=== PATIENT | male | born 1965 | race Caucasian/White ===

== ENCOUNTER → 2023-05-13 | Outpatient (CLI) | payer BC, SELFPAY ==
--- NOTE | 2023-05-13 | IMM_PTH ---
PATHOLOGY RESULTS PATIENT: JAMAICA GARCIA LOC: [facility] U#:[id number] AGE/SX: 57/M ROOM: RE05/13/[address]: Dr. Joshua Martin MD : 1965 BED: DIS: 05/13/2023 SPEC #: [id number] RECD: 05/17/23 10:53 STATUS: MARLENY REQ #: [id number] AMBROSE: 05/13/23 00:[address]: Joshua Martin DEPT: IMMUNOHISTOCHEMISTRY RECD BY: Lavelle Mullins ENTERED: 05/17/23 10:55 SP TYPE: IMMUNO Tissues: PROSTATE RIGHT PROSTATE LEFT PROSTATE LEFT Procedures: 34BE12 (add) P40 (add) P40 (initial) PHYSICIAN & INSTITUTION [place] [id number] SPECIMEN INFORMATION: Tissue Source: B - Right prostate mid, E-Left prostate, mid, F- Left prostate, base Clinical Info: Elevated PSA Specimen Number: [id number] B,E,F CPT code: 62108,02027b6 METHODOLOGY: Deparaffinized sections of prefer/formalin-fixed tissue or PAP/DQ stained slides are incubated with monoclonal/polyclonal antibodies/oligonucleotide probes. Localization is made via biotin free immunoperoxidase method. Appropriate controls are performed and reacted as expected. Results on target cell population are indicated in the following table: RESULTS: ANTIBODY / CLONE RESULT Block B P40 (BC28) positive 34BE12 (34BE12) positive Block E P40 (BC28) positive 34BE12 (34BE12) positive Block F P40 (BC28) positive 34BE12 (34BE12) positive These tests were developed and their performance characteristics determined by [facility]. They may not have been cleared or approved by the U.[place]. Food and Drug Administration. The FDA has determined that such clearance or approval is not necessary. The above immunohistochemical/dualISH markers are ordered and reviewed by the Pathologist. INTERPRETATION: B. Right prostate, mid, core biopsy: No evidence of malignancy. E. Left prostate, mid, core biopsy: No evidence of malignancy. F. Left prostate, base , core biopsy: No evidence of malignancy. AM:nelda 05/18/2023
--- NOTE | 2023-05-13 08:00 | PROSBIL_PTH ---
PATHOLOGY RESULTS PATIENT: JAMAICA GARCIA LOC: [facility] U#:[id number] AGE/SX: 57/M ROOM: RE05/13/[address]: Dr. Joshua Martin MD : 1965 BED: DIS: 05/13/2023 SPEC #: [id number] RECD: 05/14/23 08:04 STATUS: MARLENY CARITO #: [id number] AMBROSE: 05/13/23 08:[address]: Joshua Martin DEPT: SURGICAL PATHOLOGY RECD BY: Erin Carey ENTERED: 05/14/23 08:04 SP TYPE: PROST BX Tissues: PROSTATE RIGHT PROSTATE RIGHT PROSTATE RIGHT PROSTATE LEFT PROSTATE LEFT PROSTATE LEFT Procedures: PROSTATE BX HEADER OPERATION: Prostate biopsy PRE-OP DIAGNOSIS: Elevated PSA TISSUE SUBMITTED: A - Right apex, B - Right mid, C - Right base, D - Left apex, E - Left mid, F - Left base MICROSCOPIC DIAGNOSIS A. Right prostate, apex, core biopsy: Mild chronic inflammation. B. Right prostate, mid, core biopsy: Focal chronic inflammation. See comment. C. Right prostate, base, core biopsy: Mild chronic inflammation. Focal acute inflammation. Focal glandular atrophy. D. Left prostate, apex, core biopsy: No pathologic change. E. Left prostate, mid, core biopsy: Glandular atrophy and chronic inflammation. See comment. F. Left prostate, base, core biopsy: Mild chronic inflammation and glandular atrophy. See comment. AM:nelda 05/17/2023 COMMENT B, E & F - Immunohistochemistry ([id number]) supports the above diagnosis. MICROSCOPIC DESCRIPTION Slides are reviewed. GROSS DESCRIPTION A - Received is one container designated prostate, right apex. The specimen consists of two elongated fragments of light saini-white soft tissue measuring 0.8 and 1.2 cm in length and 0.1 cm in diameter. The specimen is totally submitted in one cassette. B - Received is one container designated prostate, right mid. The specimen consists of two elongated fragments of light saini-white soft tissue measuring 1.5 and 1.2 cm in length and 0.1 cm in diameter. The specimen is totally submitted in one cassette. C - Received is one container designated prostate, right base. The specimen consists of two elongated fragments of light saini-white soft tissue each measuring 1.5 cm in length and 0.1 cm in diameter. The specimen is totally submitted in one cassette. D - Received is one container designated prostate, left apex. The specimen consists of two elongated fragments of light saini-white soft tissue measuring 0.9 and 1.0 cm in length and 0.1 cm in diameter. The specimen is totally submitted in one cassette. E - Received is one container designated prostate, left mid. The specimen consists of two elongated fragments of light saini-white soft tissue measuring 0.6 and 1.5 cm in length and 0.1 cm in diameter. The specimen is totally submitted in one cassette. F - Received is one container designated prostate, left base. The specimen consists of two elongated fragments of light saini-white soft tissue measuring 1.2 and 1.5 cm in length and 0.1 cm in diameter. The specimen is totally submitted in one cassette. / JIMMY:nelda 05/14/2023 TC:3 CPT: 52224 x6
--- OUTSIDE RECORDS SUMMARY | 2023-05-13 20:25 | XMS RPT_ITS | CCD ---
Author Name Unknown Address [address] [place] [address] Organization [facility] Care Team Providers Care Product Planner Name Role Phone Mouna Dawson Primary Care Provider ERICA LI Attending Unavailable SAMIR MOUNA Byrne Primary Care Unavailable Samir QUEZADA Mouna F Primary Care Provider [phone] Samir QUEZADA Mouna Byrne Primary Care Provider MOUNA DAWSON Attending Unavailable PETRILLA, MOUNA Referring Unavailable PETRILLA, RIO DELL Primary Care Unavailable LILIANA TRUJILLO Referring Unavailable EMMY CANO Primary Care Unavailable PETRILLA, MOUNA Attending Unavailable PETRILLA, MOUNA Primary Care Unavailable PETRILLA, MOUNA Primary Care Unavailable SURI BENJAMIN Attending Unavailable CASSIDY, SURI Referring Unavailable KENYA, MOUNA Primary Care Unavailable PETRISHOLAA, MOUNA Attending Unavailable PETRILLA, RIO DELL Primary Care Unavailable FRACAELIASO EMMY Primary Care Unavailable LILIANA TRUJILLO Attending Unavailable PETRILLA, MOUNA Attending Unavailable PETRILLA, MOUNA Referring Unavailable PETRILLA, RIO DELL Primary Care Unavailable Allergies Allergy Classification Reported Allergen(s) Allergy Type Date of Onset Reaction(s) Facility (13 sources) Amoxicillin; Translations: [AMOXICILLIN] Drug Allergy 04-04-2015 Rash [facility] Medications Current Medications Medication Drug Class(es) Dates Sig (Normalized) Sig (Original) benzonatate 200 mg oral capsule (1 source) Non-narcotic Antitussive Start: 10-07-2022 End: 10-11-2022 take 1 capsule by mouth three times daily as needed for cough benzonatate (Tessalon) 200 MG capsule Indications: URI with cough and congestion , COPD exacerbation (HCC) Take 1 capsule (200 mg) by mouth 3 times daily as needed for cough for up to 4 days. Do not crush or chew. 12 capsule 0 10/07/2022 10/11/2022 Active 12 hr buPROPion hydrochloride 200 mg extended release oral tablet (12 sources) Aminoketone Start: 08-24-2022 End: 08-25-2023 take 1 tablet by mouth twice daily buPROPion SR (Wellbutrin SR) 200 MG 12 hr tablet Take 1 tablet (200 mg) by mouth 2 times daily. Do not crush, chew, or split. 180 tablet 1 02/26/2023 08/25/2023 Active Completed/Discontinued Medications Medication Drug Class(es) Dates Sig (Normalized) Sig (Original) acetaminophen 325 mg oral capsule (2 sources) take 1 capsule by mouth every six hours as needed acetaminophen 325 mg cap Take 325 mg by mouth every 6 hours as needed. 0 Active Problems Active Problems Problem Classification Problem Date Documented Date Episodic/Chronic Administrative/socia l admission (2 sources) Tobacco abuse counseling; Translations: [Tobacco abuse counseling] Onset: 03-23-2023 Episodic Chronic obstructive pulmonary disease and bronchiectasis (15 sources) Chronic obstructive lung disease; Translations: [Chronic obstructive pulmonary disease, unspecified] Onset: 04-27-2022 04-27-2022 Chronic Disorders of lipid metabolism (3 sources) Hypercholesterolemia; Translations: [Pure hypercholesterolemia, unspecified] Onset: 08-24-2022 08-24-2022 Chronic Esophageal disorders (3 sources) Gastroesophageal reflux disease without esophagitis; Translations: [Gastro-esophageal reflux disease without esophagitis] Chronic Genitourinary symptoms and ill-defined conditions (7 sources) Increased frequency of urination; Translations: [Frequency of micturition] Onset: 08-24-2022 08-24-2022 Episodic Other aftercare (4 sources) Patient encounter status; Translations: [Encounter for therapeutic drug level monitoring] Episodic Other nervous system disorders (2 sources) Other chronic pain; Translations: [Other chronic pain] Onset: 04-26-2023 Chronic Other non-traumatic joint disorders (3 sources) Chronic pain of left upper limb; Translations: [Pain in left shoulder] 03-23-2023 Episodic Other non-traumatic joint disorders (2 sources) Pain in left shoulder; Translations: [Pain in left shoulder] Onset: 04-26-2023 Episodic Other skin disorders (1 source) Excessive sweating; Translations: [Generalized hyperhidrosis] 08-24-2022 Episodic Residual codes; unclassified (1 source) Tobacco use and exposure - finding; Translations: [Tobacco use] Episodic Substance-related disorders (20 sources) Smoker; Translations: [Nicotine dependence, unspecified, uncomplicated] Onset: 04-15-2015 12-22-2021 Chronic Unclassified (1 source) Acute cough; Translations: [Acute cough] Onset: 06-30-2022 Past or Other Problems Problem Classification Problem Date Documented Da te Episodic/Chronic Other lower respiratory disease (10 sources) Nodule of lung; Translations: [Solitary pulmonary nodule] Onset: 04-27-2022 04-27-2022 Episodic Other screening for suspected conditions (not mental disorders or infectious disease) (18 sources) Raised prostate specific antigen; Translations: [Elevated prostate specific antigen [PSA]] Onset: 02-05-2022 02-15-2022 Episodic Other skin disorders (2 sources) Generalized hyperhidrosis; Translations: [Generalized hyperhidrosis] Onset: 08-24-2022 Episodic Other upper respiratory infections (3 sources) Upper respiratory infection; Translations: [Acute upper respiratory infection, unspecified] Onset: 10-07-2022 10-07-2022 Episodic Residual codes; unclassified (10 sources) Family history of malignant neoplasm of pancreas; Translations: [Family history of malignant neoplasm of digestive organs] Onset: 04-15-2015 12-22-2021 Episodic Residual codes; unclassified (10 sources) Family history of diabetes mellitus; Translations: [Family history of diabetes mellitus] Onset: 01-26-2022 01-26-2022 Episodic Unclassified (1 source) Acute cough; Translations: [Acute cough] Onset: 06-30-2022 Results Test Name Value Interpretation Reference Range Facil ity Vital Signs Date Time Vital Sign Value Performing Clinician Faci lity 03-23-2023 16:06-0500 Body height 182.9 cm Mouna Dawson [employer] Work Phone: [employer] 03-23-2023 16:06-0500 Body mass index (BMI) [Ratio] 28.89 kg/m2 Mouna Dawson [employer] Work Phone: [employer] 03-23-2023 16:06-0500 Body temperature 97.11 [degF] Mouna Dawson [employer] Work Phone: [email or web address] 03-23-2023 16:06-0500 Body weight 96.62 kg Mouna Dawson DO Work Phone: [facility] [email or web address] 03-23-2023 16:06-0500 Diastolic blood pressure 82 mm[Hg] Mouna Dawson DO Work Phone: [facility] [email or web address] 03-23-2023 16:06-0500 Heart rate 57 /min Mouna Dawson DO Work Phone: [facility] [email or web address] 03-23-2023 16:06-0500 SaO2% (BldA) [Mass fraction] 94 % Mouna Dawson DO Work Phone: [facility] [email or web address] 03-23-2023 16:06-0500 Systolic blood pressure 122 mm[Hg] Mouna Dawson DO Work Phone: [facility] [email or web address] 10-07-2022 17:12-0400 SaO2% (BldA) [Mass fraction] 91 % Suri Cassidy [employer] Work Phone: [facility] [email or web address] 10-07-2022 17:00-0400 Body height 182.9 cm Suri Cassidy [employer] Work Phone: [email or web address] 10-07-2022 17:00-0400 Body mass index (BMI) [Ratio] 27.18 kg/m2 Suri Cassidy [employer] [facility] 10-07-2022 17:00-0400 Body temperature 98.1 [degF] Suri Cassidy [employer] Work Phone: [email or web address] 10-07-2022 17:00-0400 Body weight 90.9 kg Suri Cassidy [employer] Work Phone: [email or web address] 10-07-2022 17:00-0400 Diastolic blood pressure 85 mm[Hg] Suri Cassidy [employer] Work Phone: [email or web address] 10-07-2022 17:00-0400 Heart rate 98 /min Suri Cassidy [employer] Work Phone: [facility] [email or web address] 10-07-2022 17:00-0400 Systolic blood pressure 121 mm[Hg] Suri Benjamin [employer] Work Phone: [facility] [employer] 08-24-2022 08:58-0400 Body height 182.9 cm Mouna Dawson DO Work Phone: [facility] [employer] 08-24-2022 08:58-0400 Body mass index (BMI) [Ratio] 27.26 kg/m2 Mouna Dawson DO Work Phone: [facility] [email or web address] 08-24-2022 08:58-0400 Body temperature 97.7 [degF] Mouna Dawson DO Work Phone: [facility] [employer] 08-24-2022 08:58-0400 Body weight 91.17 kg Mouna Dawson DO Work Phone: [facility] [employer] 08-24-2022 08:58-0400 Diastolic blood pressure 72 mm[Hg] Mouna Dawson DO Work Phone: [facility] [email or web address] 08-24-2022 08:58-0400 Heart rate 69 /min Mouna Dawson DO Work Phone: [facility] [email or web address] 08-24-2022 08:58-0400 SaO2% (BldA) [Mass fraction] 94 % Mouna Dawson DO Work Phone: [facility] [email or web address] 08-24-2022 08:58-0400 Systolic blood pressure 108 mm[Hg] Mouna Dawson DO Work Phone: [facility] [email or web address] 03-10-2022 15:36-0500 Body height 182.9 cm Erica Guillermo PA-C Work Phone: [facility] 03-10-2022 15:36-0500 Body weight 90.72 kg Erica Guillermo PA-C Work Phone: [facility] 03-10-2022 15:36-0500 Diastolic blood pressure 72 mm[Hg] Erica Guillermo PA-C Work Phone: [facility] 03-10-2022 15:36-0500 Heart rate 75 /min Erica Guillermo TELLEZ Work Phone: [facility] 03-10-2022 15:36-0500 Systolic blood pressure 112 mm[Hg] Erica Guillermo TELLEZ Work Phone: [facility] Encounters Encounter Date Encounter Type Care Provider Facility Start: 05-11-2023 End: 05-12-2023 ambulatory MOUNA DAWSON [facility] Start: 05-11-2023 End: 05-11-2023 Subsequent hospital visit by physician Mouna Dawson DO Work Phone: [facility] Procedures Date Procedure Procedure Detail Performing Clinician Start: 10-16-2022 Lipid 1996 panel - S cheko or Plasma Mouna Dawson DO Work Phone: Start: 10-07-2022 Radiologic exam ches t 2 views Suri Benjamin [employer] Work Phone: Start: 02-09-2022 Lipid 1996 panel - S cheko or Plasma Mouna Dawson Work Phone: Plan of Treatment Date Care Activity Detail Author Start: 10-17-2027 Lipid panel Lipid Panel [facility] Start: 02-09-2027 Lipid panel Lipid Panel [facility] Start: 02-09-2027 LIPID SCREEN LIPID SCREEN [facility] Start: 09-02-2025 Screening for malignant neoplasm of colon [facility] Start: 2023 RSV Immunization aged 60 or older (1 - 1-dose 60+ series) RSV Immunization aged 60 or older (1 - 1-dose 60+ series) [facility] Start: 05-11-2023 End: 05-11-2023 Patient encounter procedure 05/11/2023 3:15 PM EST Appointment [facility] [address] [place] [address] Mouna Dawson DO [address] [place] [address] [facility] [address] Start: 03-25-2023 End: 03-25-2024 CT Chest for screening WO contrast CT lung screening low dose Imaging Routine Moderate smoker (20 or less per day) Smoker Expected: 03/25/2023, Expires: 03/25/2024 [facility] Work Phone: Payers Date Payer Category Payer Unknown [id number] 2020 Unknown [id number] Social History Date Type Detail Facility Start: 04-04-1982 End: 01-08-2022 Tobacco smoking status NHIS Smokes tobacco daily [facility] Start: 09-18-1981 History of tobacco use Cigarette Smo ker [facility] Start: 11-29-2018 End: 10-07-2022 Cigarettes smoked current (pack per day) - Reported 1 [facility] Start: 11-29-2018 Tobacco use and exposure Lewis cherry smokeless tobacco user [facility] History of tobacco use Snuff User [facility] Start: 02-05-2021 End: 03-23-2023 Alcohol intake Current drinker of alcohol (finding) [facility] Start: 09-02-2017 Alcohol Comment 2 days or less/week [facility] Start: 1965 Sex Assigned At Not on file [facility] Start: 01-08-2022 Tobacco use and exposure Smoke less tobacco non-user [facility] Start: 06-30-2022 End: 10-07-2022 Tobacco use panel [facility] Start: 08-14-2022 End: 10-07-2022 Exposure to SARS-CoV-2 (event) Not sure [facility] Clinical Notes 02-04-2022 to 03-25-2023 Telephone Encounter - Brenda Lackey - 03/25/2023 10:42 AM ESTTelephone Encounter - Brenda Lackey - 03/25/2023 10:42 AM Kai Dawson DO - 03/23/2023 4:00 PM ESTPatient InstructionsAttachments Note Date & Type Note Facility 03-25-2023 Note Referral pended for doctor's signature [facility] 03-25-2023 Telephone encounter Note Referral pended for doctor's signature [facility] 03-25-2023 Miscellaneous Notes Referral pended for doctor's signature documented in this encounter [facility] 03-23-2023 History of Present illness Narrative Images from the original note were not included. [facility] [address] [facility] [id number] Visit type: Established Patient Reason for Visit: Follow-up (6 month med check) Assessment / Plan: [place] was seen today for follow-up. Diagnoses and all orders for this visit: Chronic obstructive pulmonary disease with acute exacerbation (HCC) (Primary) Comments: Stable, continue Trelegy and albuterol as needed. Smoking cessation urged Orders: - CBC auto differential; Future - Comprehensive metabolic panel; Future - CBC auto differential - Comprehensive metabolic panel Smoker Comments: LDCT chest Elevated PSA, less than 10 ng/ml Comments: Persistent, urology referral Orders: - PSA, total and free; Future - PSA, total and free Nocturia Chronic left shoulder pain Comments: Recurrent, x-ray, diclofenac gel 3 times daily as needed Orders: - XR shoulder 2+ views left; Future Encounter for smoking cessation counseling Comments: Stable, continue Wellbutrin Other orders - Ajegbusihcg-Qufhwizbw-Xbgsnl (Trelegy Ellipta) 200-62.5-25 MCG/ACT aerosol powder ; Inhale 1 Inhalation. daily. Subjective: Patient ID: [place] Rivero is a 57 y.o. male. HPI long-term smoker history of COPD per CT of the chest that has responded well to Trelegy presents for checkup. Had a URI in October and used a few days of albuterol. Denies exertional chest pain or wheezing. Trelegy has been effective. He is due for LDCT of the chest. Does have a history of small 2 mm nodule of the right base per CT last March. Has not heard from urologist for appointment for workup for elevated PSA. Needs referral. Few months of left shoulder pain. Review of Systems overall eating and voiding well. Is down to half pack cigarettes a day. No recent purulent phlegm or fever. No pleurisy or chest pain. Defers vaccinations. Denies exertional chest pain PND orthopnea claudication or edema. No heartburn or dysphagia. No melena or blood. Bowels are regular. Cologuard exam negative September in 3 years. Having ongoing nocturia postvoid dribbling and hesitancy. No hematuria. Of note PSA around 7 6 months ago. Allergies Allergen Reactions Amoxicillin Rash Current Outpatient Medications on File Prior to Visit Medication Sig Dispense Refill buPROPion SR (Wellbutrin SR) 200 MG 12 hr tablet Take 1 tablet (200 mg) by mouth 2 times daily. Do not crush, chew, or split. 180 tablet 1 omeprazole (PriLOSEC) [address] capsule [DISCONTINUED] Ecrpvqmznoo-Sdueikvrm-Daltlo (Trelegy Ellipta) 200-62.5-25 MCG/ACT aerosol powder Inhale 1 Inhalation daily. 3 each 3 [DISCONTINUED] azithromycin (Zithromax) 250 MG tablet Take 2 tablets (500 mg) on Day 1, followed by 1 tablet (250 mg) once daily on Days 2 through 5. 6 tablet 0 No current facility-administered medications on file prior to visit. Patient Active Problem List Diagnosis Smoker Family history of pancreatic cancer Family history of diabetes mellitus Elevated PSA, less than 10 ng/ml Pulmonary nodule, right Chronic obstructive pulmonary disease (HCC) Social History Tobacco Use Smoking status: Every Day Types: Cigarettes Start date: 04/04/1982 Smokeless tobacco: Never Substance Use Topics Alcohol use: Yes Alcohol/week: 2.0 standard drinks of alcohol Past Surgical History: Procedure Laterality Date PITUITARY SURGERY 1988 craniotomy pituitary adenoma UPPER GASTROINTESTINAL ENDOSCOPY 11/2010 Dr. Francis Family History Problem Relation Name Age of Onset COPD Mother age 91, in 2019, COVID illness Pancreatic cancer Father age 72, smoker, no ETOH Heart attack Sister age 54, Diabetes Sister No Known Problems Sister No Known Problems Sister No Known Problems Sister No Known Problems Maternal Grandmother No Known Problems Maternal Grandfather No Known Problems Paternal Grandmother Other (othr) Paternal Grandfather MVA in 50s Objective: BP 122/82 Pulse 57 Temp 36.2 C (97.1 F) (Temporal) Ht 6' (1.829 m) Wt 213 lb (96.6 kg) SpO2 94% BMI 28.89 kg/m Physical Exam pleasant cooperative. Certainly not ill in appearance. Normal oropharynx. Normal eardrums and clear PND. No neck masses adenopathy or thyroid lesions. No carotid bruits. Heart is regular without gallops or ectopy or murmurs. Lungs diminished in the bases but without rales wheezes or egophony. Abdomen soft nontender without pain hepatosplenomegaly masses or bruits. Extremities are pink without edema. Pulses are well Positive impingement of the left shoulder. However remaining rotator cuff exam is intact. Negative drop arm and empty can sign. Biceps intact. Can push off his buttock and touch his mid thoracic spine. Negative Spurling's. No motor loss of the upper extremities. Reflexes are normal documented in this encounter [facility] 02-26-2023 Telephone encounter Note Last OV:08/24/22 Scheduled:03/23/23 [facility] 02-26-2023 Miscellaneous Notes Last OV:08/24/22 Scheduled:03/23/23 documented in this encounter [facility] 10-20-2022 Note Referral pended for dx and doctor's signature [facility] 10-20-2022 Telephone encounter Note Referral pended for dx and doctor's signature [facility] 10-20-2022 Miscellaneous Notes Referral pended for dx and doctor's signature Mouna Dawson DO 10/20/2022 7:20 AM EDT Glucose and renal function stable. Patient with persistently elevated PSA over 4. So needs referral for urology to discuss further work-up to rule out early prostate cancer. Post referral to Dr. Ruiz if he agrees documented in this encounter [facility] 10-20-2022 Telephone encounter Note Mouna Byrne Samir, DO 10/20/2022 7:20 AM EDT Glucose and renal function stable. Patient with persistently elevated PSA over 4. So needs referral for urology to discuss further work-up to rule out early prostate cancer. Post referral to Dr. uRiz if he agrees [facility] 10-07-2022 History of Present illness Narrative Images from the original note were not included. [facility] [address] [place] [id number] Dept: [phone] Dept Loc: [phone] Subjective [place] Rivero is a 56 y.o. year old male who presents to the office with the following complaint(s): Chief Complaint Patient presents with Cough Had a cold then progressed into bronchitis, started wednesday HPI Patient presents urgent care today with complaints of cough, congestion, shortness of breath. Patient states he has a history of COPD, stating that typically when he gets an upper respiratory infection it turns into bronchitis. Patient states he had similar symptoms in June. Patient states he feels like he cannot take in a deep breath/get a full breath. Patient states he has not utilize any wqti-abz-gyyvwas medications at this time. Patient states typically he gets a Z-Marco A and steroids and feels better. Review of Systems Constitutional: Negative for activity change, chills and fever. HENT: Positive for congestion. Negative for sore throat. Respiratory: Positive for cough, chest tightness and shortness of breath. Cardiovascular: Negative for chest pain and palpitations. Allergic/Immunologic: Negative for environmental allergies and food allergies. Neurological: Negative for dizziness and headaches. Allergies Allergen Reactions Amoxicillin Rash Past Medical History: Diagnosis Date Chronic obstructive pulmonary disease (HCC) 02/[address], PFTs def Colon cancer screening 09/2022 neg Cologuard- due 09/30 Colonoscopy refused 2016 Elevated PSA, less than 10 ng/ml 02/2022 Family history of diabetes mellitus sister Family history of pancreatic cancer father at age 72 GERD (gastroesophageal reflux disease) 2010 has deferred EGD History of pituitary adenoma 1987 s/p craniotomy Hypercholesterolemia Hypotestosteronism Pulmonary nodule, right 02/2022 2 mm Rt base- rech CT due 02/27 Smoker Past Surgical History: Procedure Laterality Date PITUITARY SURGERY 1988 craniotomy pituitary adenoma UPPER GASTROINTESTINAL ENDOSCOPY 11/2010 Dr. Francis Family History Problem Relation Name Age of Onset COPD Mother age 91, in 2019, COVID illness Pancreatic cancer Father age 72, some nicotine, no ETOH Heart attack Sister age 54, Diabetes Sister No Known Problems Sister No Known Problems Sister No Known Problems Sister No Known Problems Maternal Grandmother No Known Problems Maternal Grandfather No Known Problems Paternal Grandmother Other (othr) Paternal Grandfather MVA in 50s Social History Socioeconomic History Marital status: Tobacco Use Smoking status: Every Day Types: Cigarettes Start date: 04/04/1982 Smokeless tobacco: Never Substance and Sexual Activity Alcohol use: Yes Alcohol/week: 2.0 standard drinks of alcohol Social History Narrative to Corinna since 2000. Smoker, rare ETOH, 3 step kids, has 7 GC. 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 Do not crush, chew, or split. 180 tablet 1 Yyemlqfszyq-Lifkbtzrp-Uyyxfy (Trelegy Ellipta) 200-62.5-25 MCG/ACT aerosol powder Inhale 1 Inhalation daily. 3 each 3 omeprazole (PriLOSEC) [address] capsule tamsulosin (Flomax) 0.4 MG 24 hr capsule Take 1 capsule (0.4 mg) by mouth daily. 90 capsule 0 No current facility-administered medications on file prior to visit. Objective BP 121/85 Pulse 98 Temp 36.7 C (98.1 F) (Temporal) Ht 6' (1.829 m) Wt 200 lb 6.4 oz (90.9 kg) SpO2 91% BMI 27.18 kg/m Physical Exam Vitals and nursing note reviewed. Constitutional: General: He is not in acute distress. Appearance: Normal appearance. He is normal weight. He is not ill-appearing. HENT: Head: Normocephalic. Nose: Nose normal. Mouth/Throat: Mouth: Mucous membranes are moist. Eyes: Pupils: Pupils are equal, round, and reactive to light. Pulmonary: Effort: Pulmonary effort is normal. Prolonged expiration present. No accessory muscle usage or respiratory distress. Breath sounds: Decreased breath sounds and wheezing present. Skin: General: Skin is warm and dry. Neurological: General: No focal deficit present. Mental Status: He is alert and oriented to person, place, and time. Mental status is at baseline. Psychiatric: Mood and Affect: Mood normal. Behavior: Behavior normal. Thought Content: Thought content normal. Judgment: Judgment normal. Chest XRAY-1. Stable examination. No acute findings. Assessment: 1. COPD exacerbation (HCC) 2. URI with cough and congestion [place] was seen today for cough. Diagnoses and all orders for this visit: COPD exacerbation (HCC) (Primary) - azithromycin (Zithromax) 250 MG tablet; Take 2 tablets (500 mg) on Day 1, followed by 1 tablet (250 mg) once daily on Days 2 through 5. - predniSONE (Deltasone) 20 MG tablet; Take 2 tablets (40 mg) by mouth daily for 5 days. - benzonatate (Tessalon) 200 MG capsule; Take 1 capsule (200 mg) by mouth 3 times daily as needed for cough for up to 4 days. Do not crush or chew. URI with cough and congestion - XR chest 2 views - azithromycin (Zithromax) 250 MG tablet; Take 2 tablets (500 mg) on Day 1, followed by 1 tablet (250 mg) once daily on Days 2 through 5. - predniSONE (Deltasone) 20 MG tablet; Take 2 tablets (40 mg) by mouth daily for 5 days. - benzonatate (Tessalon) 200 MG capsule; Take 1 capsule (200 mg) by mouth 3 times daily as needed for cough for up to 4 days. Do not crush or chew. Patient advised of chest x-ray results. Plan of care for patient is to treat for COPD exacerbation. Patient advised to be given prescription for Z-Marco A as requested along with prednisone. Patient advised take entirety medication take medication with food and fluid. Patient did request something to help with cough only at night. I explained to patient he be given Tessalon. Patient was advised this medication can be taken during the day, however night is recommended. Red flag discussed with patient. Patient to check pulse ox at home. If he drops under 88 and stays he is to go to the ER for further evaluation. Patient agreeable and understanding of plan of care. Medication indications, directions, and side effects were discussed. Patient given educational materials - see patient instructions. Discussed use, benefit, and side effects of prescribed medications. All patient questions answered. Pt voiced understanding and aware of treatment plan. Follow up as directed. (Please note that portions of this note may have been completed with a voice recognition program. Efforts were made to edit the dictations but occasionally words aremis-transcribed.) JANICE Subramanian 10/07/22 documented in this encounter [facility] 10-07-2022 Instructions TONI Subramanian NP - 10/07/2022 4:40 PM EDT Tessalon at night. Monitor pulse ox. ER for new/worsening symptoms. PCP follow-up otherwise The following attachments cannot be sent through Care Everywhere.Chronic Obstructive Pulmonary Disease (COPD) Discharge Instructions (Guamanian)documented in this encounter [facility] 08-24-2022 History of Present illness Narrative Images from the original note were not included. [facility] [address] [facility] [id number] Visit type: Established Patient Reason for Visit: Follow-up (4 month) Assessment / Plan: [place] was seen today for follow-up. Diagnoses and all orders for this visit: Chronic obstructive pulmonary disease with acute exacerbation (HCC) (Primary) Comments: Stable, continue Trelegy smoking cessation urged Smoker Comments: Uncontrolled, increase Wellbutrin to 100 mg twice daily Colon cancer screening - Cologuard colon cancer screening Elevated PSA, less than 10 ng/ml Comments: Noted, recheck lab probable urology consultation with elevated Orders: - PSA, total and free; Future - PSA, total and free Urinary frequency Comments: Noted, begin Flomax Orders: - POCT urinalysis dipstick manually resulted Hypercholesterolemia Comments: Uncontrolled, smoking cessation urged and probable statin therapy Orders: - Lipid panel; Future - Lipid panel Diaphoresis - Basic metabolic panel; Future - Basic metabolic panel Gastroesophageal reflux disease without esophagitis Comments: Stable, continue Prilosec. He defers GI eval for repeat EGD. Other orders - buPROPion SR (Wellbutrin SR) 200 MG 12 hr tablet; Take 1 tablet (200 mg) by mouth 2 times daily. Do not crush, chew, or split. - tamsulosin (Flomax) 0.4 MG 24 hr capsule; Take 1 capsule (0.4 mg) by mouth daily. Of note still defers GI consultation for upper endoscopy. Avoidance measures discussed including smoking cessation. Subjective: Patient ID: [place] Rivero is a 56 y.o. male. HPI long-term smoker presents for evaluation for Trelegy refills. He is smoking less on Wellbutrin. Overall feeling pretty fair. Of note does need follow-up on hyperlipidemia, elevated PSA, is due for colon cancer screening. Review of Systems feeling fair. Weight and appetite is good. No change in vision sore throat. Much less cough on Trelegy. No exertional dyspnea or wheezing. No chest pain jaw pain or arm pain. No heartburn or dysphagia. He is deferring repeat EGD at this time takes Prilosec daily. His bowels are regular. No melena or blood. No abdominal pain. Nocturia x1. Some postvoid dribbling and hesitancy. Would like to try Flomax. He thinks Wellbutrin is worsening his urinary symptoms. Of note elevated PSA needs follow-up. No hematuria or testicle or perineal pain Has some diaphoresis for many years. No night sweats fevers or chills. No loss of appetite or weight. Allergies Allergen Reactions Amoxicillin Rash Current Outpatient Medications on File Prior to Visit Medication Sig Dispense Refill Zygpfhdgfyd-Kthjoiyzg-Izkefm (Trelegy Ellipta) 200-62.5-25 MCG/ACT aerosol powder Inhale 1 Inhalation daily. 3 each 3 omeprazole (PriLOSEC) [address] capsule [DISCONTINUED] buPROPion SR (Wellbutrin SR) 150 MG 12 hr tablet Take 1 tablet (150 mg) by mouth 2 times daily. Do not crush, chew, or split. 180 tablet 3 [DISCONTINUED] albuterol 108 (90 Base) MCG/ACT inhaler Inhale 2 puffs every 6 hours as needed for wheezing. (Patient not taking: Reported on 08/24/2022) 18 g 0 [DISCONTINUED] azithromycin (Zithromax Z-Marco A) 250 MG tablet Take as directed (Patient not taking: Reported on 08/24/2022) 6 tablet 0 No current facility-administered medications on file prior to visit. Patient Active Problem List Diagnosis Smoker Family history of pancreatic cancer Family history of diabetes mellitus Elevated PSA, less than 10 ng/ml Pulmonary nodule, right Chronic obstructive pulmonary disease (HCC) Social History Tobacco Use Smoking status: Every Day Types: Cigarettes Start date: 04/04/1982 Smokeless tobacco: Never Substance Use Topics Alcohol use: Yes Alcohol/week: 2.0 standard drinks of alcohol Past Surgical History: Procedure Laterality Date PITUITARY SURGERY 1988 craniotomy pituitary adenoma UPPER GASTROINTESTINAL ENDOSCOPY 11/2010 Dr. Francis Family History Problem Relation Name Age of Onset COPD Mother age 91, in 2019, COVID illness Pancreatic cancer Father age 72, some nicotine, no ETOH Heart attack Sister age 54, Diabetes Sister No Known Problems Sister No Known Problems Sister No Known Problems Sister No Known Problems Maternal Grandmother No Known Problems Maternal Grandfather No Known Problems Paternal Grandmother Other (othr) Paternal Grandfather MVA in 50s Objective: BP 108/72 (BP Location: Left arm, Patient Position: Sitting, BP Cuff Size: Large adult) Pulse 69 Temp 36.5 C (97.7 F) (Temporal) Ht 6' (1.829 m) Wt 201 lb (91.2 kg) SpO2 94% BMI 27.26 kg/m Physical Exam he appears well. Normal oropharynx with no tongue lesions. Normal eardrums. No neck masses JVD adenopathy or carotid bruits. No thyroid lesions. Heart is regular gallops murmurs or ectopy. Lungs are diminished but clear of rales wheezes or egophony. Abdomen soft nontender without pain hepatosplenomegaly masses bruits or ascites. Femoral pulses good. Extremities are pink without edema. Posterior tibial pulses are adequate documented in this encounter [facility] 03-10-2022 Note HNO ID: [id number] Author: Erica Li PA-C Service: ? 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 HPI [place] Rivero is a 56 year old male here today for Recheck (Yearly no concerns.) Patient tells me that he is doing well today. On Omeprazole 40 mg daily, denies breakthrough symptoms. Denies dysphagia, nausea, vomiting, abdominal pain. Eating well. Bowel movements are regular. Denies rectal bleeding. Still smoking 1 ppd. Last OV with Dr. Francis 02/05/2021: ASSESSMENT: Gastroesophageal reflux disease without esophagitis (primary encounter diagnosis) At average risk for colon cancer PLAN: No orders found for this visit on 02/05/21. No follow-ups on file. Continue omeprazole Patient doesn't want To colonoscopy yet Current Outpatient Medications Medication Sig omeprazole (PRILOSEC) 40 mg capsule Take 1 capsule by mouth once daily. acetaminophen 325 mg cap Take 325 mg by mouth every 6 hours as needed. aspirin 325 mg tablet Take 325 mg by mouth once daily. No current facility-administered medications for this visit. ALLERGIES Allergen Reactions Amoxicillin Rash Social History Tobacco Use Smoking status: Every Day Packs/day: 1.00 Types: Cigarettes Start date: 09/18/1981 Smokeless tobacco: Former Types: Snuff Vaping Use Vaping Use: Never used Substance Use Topics Alcohol use: Yes Comment: 2 days or less/week Drug use: No Comment: Used in the past. PAST MEDICAL HISTORY Diagnosis Date Colonoscopy refused 07/22/2016 GERD (gastroesophageal reflux disease) Hiatal hernia History of pituitary adenoma Hypotestosteronism PAST SURGICAL HISTORY Procedure Laterality Date EGD 12/04/2010 HERNIA REPAIR HX 2010 PAST SURGICAL HISTORY OF Colonoscopy refused on 07-22-16. PAST SURGICAL HISTORY OF Pituitary surgery. Craniotomy pituitary adenoma age 22. FAMILY HISTORY Problem Relation Age of Onset Pancreatic Cancer Father COPD Mother Heart Attack Sister CAD, [place] Colon Cancer No Family History REVIEW OF SYSTEMS Review of Systems Respiratory: Positive for cough, shortness of breath and wheezing. All other systems reviewed and are negative. PHYSICAL EXAM Pulse 75 Ht 6' 0 (1.83m) Wt 200 lb (90.7kg) BMI 27.12 kg/(m2). Physical Exam Constitutional: Appearance: Normal appearance. HENT: Head: Normocephalic and atraumatic. Eyes: General: No scleral icterus. Extraocular Movements: Extraocular movements intact. Conjunctiva/sclera: Conjunctivae normal. Pupils: Pupils are equal, round, and reactive to light. Cardiovascular: Rate and Rhythm: Normal rate and regular rhythm. Pulses: Normal pulses. Heart sounds: Normal heart sounds. Pulmonary: Effort: Pulmonary effort is normal. Breath sounds: Normal breath sounds. Abdominal: General: Abdomen is flat. Bowel sounds are normal. Palpations: Abdomen is soft. Tenderness: There is no abdominal tenderness. Musculoskeletal: General: Normal range of motion. Cervical back: Normal range of motion and neck supple. Skin: General: Skin is warm and dry. Coloration: Skin is not jaundiced. Neurological: General: No focal deficit present. Mental Status: He is alert and oriented to person, place, and time. Psychiatric: Mood and Affect: Mood normal. Behavior: Behavior normal. Thought Content: Thought content normal. Judgment: Judgment normal. Assessment/Plan (K21.9) Gastroesophageal reflux disease without esophagitis (primary encounter diagnosis) (Z51.81, Z79.899) Encounter for monitoring long-term proton pump inhibitor therapy (Z72.0) Tobacco use (Z12.11) Screening for colon cancer 1. Gastroesophageal reflux disease without esophagitis -- Doing very well on Omeprazole 40 mg daily. Refilled this for him today. -- Plan for EGD r/o Magallon's, esophagitis, gastritis due to last scope >10 years ago, smoking 1 ppd. - omeprazole (PRILOSEC) 40 mg capsule; Take 1 capsule by mouth once daily. Dispense: 90 capsule; Refill: 3 - EGD DIAGNOSTIC; Future 2. Encounter for monitoring long-term proton pump inhibitor therapy -- Doing very well on Omeprazole 40 mg daily. Refilled this for him today. -- Plan for EGD r/o Magallon's, esophagitis, gastritis due to last scope >10 years ago, smoking 1 ppd. - omeprazole (PRILOSEC) 40 mg capsule; Take 1 capsule by mouth once daily. Dispense: 90 capsule; Refill: 3 - EGD DIAGNOSTIC; Future 3. Tobacco use -- Doing very well on Omeprazole 40 mg daily. Refilled this for him today. -- Plan for EGD r/o Magallon's, esophagitis, gastritis due to last scope >10 years ago, smoking 1 ppd. - EGD DIAGNOSTIC; Future 4. Screening for colon cancer - COLONOSCOPY SCREENING; Future Follow up in office PRN. Recommended to please call office/go to ER if fever, chills, chest pain, SOB, diarrhea, nausea, emesis, worsenin (more content not included)... [facility] 03-10-2022 Instructions Erica Li PA-C - 03/10/2022 3:43 PM EST Images from the original note were not included. Bowel Preparation Instructions for: Miralax-Gatorade Preparations IF YOU DO NOT FOLLOW THESE DIRECTIONS, YOUR COLONOSCOPY WILL BE CANCELLED. Chowdary Instructions: Your bowel must be empty so that your doctor can clearly view your colon. Follow all of the instructions in this handout EXACTLY as they are written. Do NOT eat any solid food the ENTIRE day before your colonoscopy. Buy your bowel preparation at least 5 days before your colonoscopy. Four (4) Dulcolax laxative tablets containing 5mg of bisacodyl each (NOT Dulcolax stool softener) One (1) 8.3oz. bottle Miralax (238 grams) or generic equivalent 2 x 32oz. Bottles of Gatorade (NOT RED) Diabetic Patients: Use G2 (Gatorade 2) TRANSPORTATION on the Day of Your Exam A responsible adult MUST be present with you at Check In prior to your colonoscopy and REMAIN in the endoscopy area until you are discharged. You are NOT ALLOWED to drive, take a taxi or bus, or leave the Endoscopy Center ALONE. If you do not have a responsible funeral car driver (family member or friend) with you to take you home, your exam cannot be done with sedation and will be cancelled. Please bring a list of all of your current medications, including any Khqg-dld-Fnylkje medications with you. Medications If you take insulin, diabetic medications or blood thinners such as Coumadin (warfarin), Plavix (clopidogrel), Ticlid (ticlopidine hydrochloride), Agrylin (anagrelide), Xarelto (Rivaroxaban), Pradaxa (Dabigatran), Eliquis (Apixaban), and Effient (Prasugrel). You MUST call the doctors who orders those medicines for instructions on altering the dosage before your colonoscopy. All other medications should be taken the day of the exam with a sip of water including ASPIRIN. Five (5) Days Before Your Colonoscopy Do NOT take medicines that stop diarrhea - such as Imodium, Kaopectate, or Pepto Bismol. Do NOT take fiber supplements - such as Metamucil, Citrucel, or Perdiem. Do NOT take products that contain iron - such as multi-vitamins (the label lists what is in the products). Three (3) Days Before Your Colonoscopy Do NOT eat high-fiber foods - such as popcorn, beans, seeds (flax, sunflower, quinoa), multigrain bread, nuts, salad/vegetables, or fresh and dried fruit. 1 Bowel Preparation Instructions for: Miralax-Gatorade Preparations One (1) Day Before Your Colonoscopy Only drink clear liquids the ENTIRE DAY before your colonoscopy. Do NOT eat any solid foods. Drink at least 8 ounces of clear liquids every hour after waking up. The clear liquids you can drink include: Clear Liquid (NO RED LIQUIDS) DO NOT DRINK Gatorade, Pedialyte or Powerade Clear broth or bouillon Coffee or tea (no milk or non-dairy creamer) Carbonated and non-carbonated soft drinks Prieto-Aid or other fruit flavored drinks Strained fruit juices (no pulp) Jell-O, popsicles, hard candy Water Alcohol Milk or non-dairy creamers Noodles or vegetables in soup Juice with pulp Liquid you cannot see through Do not use tobacco/vaping products Mix 1/2 of Miralax bottle (119 grams) in each 32 ounces of Gatorade bottle until dissolved. Keep cool in the refrigerator. DO NOT ADD ICE. The bowel preparation solution will be consumed in two parts. Part 1 5:00 PM - Evening before your colonoscopy Take 4 Dulcolax tablets. 6 PM - Evening before your colonoscopy Drink 32 oz. of the mixed solution. Drink an 8 oz. glass of bowel preparation every 15 minutes for a total of 4 glasses. Fifteen (15) minutes later, drink an 8 oz. glass of of clear liquids every 15 minutes for a total of 2 glasses. You may continue to drink clear liquids till midnight. Part 2 On the day of your colonoscopy you may drink clear liquids up to (three) 3 hours prior to procedure. 4 1/2 hours before your colonoscopy Take another 32 oz. bottle of mixed solution. Drink an 8 oz. glass of bowel prep every 15 minutes for a total of 4 glasses. Fifteen (15) minutes later, drink an 8 oz. glass of clear liquids every 15 minutes for a total of 2 glasses. You may continue to drink clear liquids up to (three) 3 hours before your exam. 2 02/2019 documented in this encounter [facility] 03-10-2022 History of Present illness Narrative CHIEF COMPLAINT: Patient presents with: Recheck: Yearly no concerns. HPI [place] Rivero is a 56 year old male here today for Recheck (Yearly no concerns.) Patient tells me that he is doing well today. On Omeprazole 40 mg daily, denies breakthrough symptoms. Denies dysphagia, nausea, vomiting, abdominal pain. Eating well. Bowel movements are regular. Denies rectal bleeding. Still smoking 1 ppd. Last OV with Dr. Francis 02/05/2021: ASSESSMENT: Gastroesophageal reflux disease without esophagitis (primary encounter diagnosis) At average risk for colon cancer PLAN: No orders found for this visit on 02/05/21. No follow-ups on file. Continue omeprazole Patient doesn't want To colonoscopy yet Current Outpatient Medications Medication Sig omeprazole (PRILOSEC) 40 mg capsule Take 1 capsule by mouth once daily. acetaminophen 325 mg cap Take 325 mg by mouth every 6 hours as needed. aspirin 325 mg tablet Take 325 mg by mouth once daily. No current facility-administered medications for this visit. ALLERGIES Allergen Reactions Amoxicillin Rash Social History Tobacco Use Smoking status: Every Day Packs/day: 1.00 Types: Cigarettes Start date: 09/18/1981 Smokeless tobacco: Former Types: Snuff Vaping Use Vaping Use: Never used Substance Use Topics Alcohol use: Yes Comment: 2 days or less/week Drug use: No Comment: Used in the past. PAST MEDICAL HISTORY Diagnosis Date Colonoscopy refused 07/22/2016 GERD (gastroesophageal reflux disease) Hiatal hernia History of pituitary adenoma Hypotestosteronism PAST SURGICAL HISTORY Procedure Laterality Date EGD 12/04/2010 HERNIA REPAIR HX 2010 PAST SURGICAL HISTORY OF Colonoscopy refused on 07-22-16. PAST SURGICAL HISTORY OF Pituitary surgery. Craniotomy pituitary adenoma age 22. FAMILY HISTORY Problem Relation Age of Onset Pancreatic Cancer Father COPD Mother Heart Attack Sister CAD, [place] Colon Cancer No Family History REVIEW OF SYSTEMS Review of Systems Respiratory: Positive for cough, shortness of breath and wheezing. All other systems reviewed and are negative. PHYSICAL EXAM Pulse 75 Ht 6' 0 (1.83m) Wt 200 lb (90.7kg) BMI 27.12 kg/(m^2). Physical Exam Constitutional: Appearance: Normal appearance. HENT: Head: Normocephalic and atraumatic. Eyes: General: No scleral icterus. Extraocular Movements: Extraocular movements intact. Conjunctiva/sclera: Conjunctivae normal. Pupils: Pupils are equal, round, and reactive to light. Cardiovascular: Rate and Rhythm: Normal rate and regular rhythm. Pulses: Normal pulses. Heart sounds: Normal heart sounds. Pulmonary: Effort: Pulmonary effort is normal. Breath sounds: Normal breath sounds. Abdominal: General: Abdomen is flat. Bowel sounds are normal. Palpations: Abdomen is soft. Tenderness: There is no abdominal tenderness. Musculoskeletal: General: Normal range of motion. Cervical back: Normal range of motion and neck supple. Skin: General: Skin is warm and dry. Coloration: Skin is not jaundiced. Neurological: General: No focal deficit present. Mental Status: He is alert and oriented to person, place, and time. Psychiatric: Mood and Affect: Mood normal. Behavior: Behavior normal. Thought Content: Thought content normal. Judgment: Judgment normal. Assessment/Plan (K21.9) Gastroesophageal reflux disease without esophagitis (primary encounter diagnosis) (Z51.81, Z79.899) Encounter for monitoring long-term proton pump inhibitor therapy (Z72.0) Tobacco use (Z12.11) Screening for colon cancer 1. Gastroesophageal reflux disease without esophagitis -- Doing very well on Omeprazole 40 mg daily. Refilled this for him today. -- Plan for EGD r/o Magallon's, esophagitis, gastritis due to last scope >10 years ago, smoking 1 ppd. - omeprazole (PRILOSEC) 40 mg capsule; Take 1 capsule by mouth once daily. Dispense: 90 capsule; Refill: 3 - EGD DIAGNOSTIC; Future 2. Encounter for monitoring long-term proton pump inhibitor therapy -- Doing very well on Omeprazole 40 mg daily. Refilled this for him today. -- Plan for EGD r/o Magallon's, esophagitis, gastritis due to last scope >10 years ago, smoking 1 ppd. - omeprazole (PRILOSEC) 40 mg capsule; Take 1 capsule by mouth once daily. Dispense: 90 capsule; Refill: 3 - EGD DIAGNOSTIC; Future 3. Tobacco use -- Doing very well on Omeprazole 40 mg daily. Refilled this for him today. -- Plan for EGD r/o Magallon's, esophagitis, gastritis due to last scope >10 years ago, smoking 1 ppd. - EGD DIAGNOSTIC; Future 4. Screening for colon cancer - COLONOSCOPY SCREENING; Future Follow up in office PRN. Recommended to please call office/go to ER if fever, chills, chest pain, SOB, diarrhea, nausea, emesis, worsening abdominal pain, dehydration occurs I spent 20 minutes in the visit, with more than 50% of the total [id number] time of the visit in counseling / coordination of care. I have confirmed and edited as necessary, the PFSH and ROS obtained by others. Erica Li PA-C March 10, 2022 3:46 PM documented in this encounter [facility] 02-04-2022 Miscellaneous Notes Patient phones requesting refills as follows: Appt 03/10/22 Requested Prescriptions Pending Prescriptions Disp Refills omeprazole (PRILOSEC) 40 mg capsule 90 capsule 0 Sig: Take 1 capsule by mouth once daily. Please review and advise. Umu Granados MA documented in this encounter [facility] Gastroesophageal reflux disease without esophagitis- Primary Esophageal reflux Encounter for monitoring long-term proton pump inhibitor therapy Encounter for therapeutic drug monitoring Tobacco use Tobacco use disorder Screening for colon cancer Special screening for malignant neoplasms, colon [facility] Diagnosis Urinary frequency- Primary documented in this encounter [facility] note* Diagnosis Chronic obstructive pulmonary disease with acute exacerbation (HCC)- Primary Smoker Tobacco use disorder Colon cancer screening Special screening for malignant neoplasms, colon Elevated PSA, less than 10 ng/ml Urinary frequency Hypercholesterolemia Pure hypercholesterolemia Diaphoresis Generalized hyperhidrosis Gastroesophageal reflux disease without esophagitis Esophageal reflux documented in this encounter [facility] note* Diagnosis COPD exacerbation (HCC)- Primary Obstructive chronic bronchitis with exacerbation URI with cough and congestion [facility] Elevated PSA, less than 10 ng/ml- Primary [facility] Diagnosis Chronic obstructive pulmonary disease with acute exacerbation (HCC)- Primary Smoker Tobacco use disorder Elevated PSA, less than 10 ng/ml Nocturia Chronic left shoulder pain Pain in joint, shoulder region Encounter for smoking cessation counseling documented in this encounter [facility] note* Diagnosis Moderate smoker (20 or less per day)- Primary Tobacco use disorder Elevated PSA, less than 10 ng/ml Smoker Tobacco use disorder [facility] Chronic left shoulder pain Pain in joint, shoulder region [facility] Diagnosis Moderate smoker (20 or less per day) Tobacco use disorder Smoker Tobacco use disorder [facility] referral (narrative)* Outpatient Procedure (Routine) - Pending Review Specialty Diagnoses / Procedures Referred By Freida nickerson Referred To Contact [facility] Diagnoses Gastroesophageal reflux disease without esophagitis Tobacco use Encounter for monitoring long-term proton pump inhibitor therapy Procedures EGD DIAGNOSTIC ESOPHAGOGASTRODUODENOS COPY TRANSORAL DIAGNOSTIC Erica Li PA-C [address] [place] [address] [facility] [address] [place] [address] Referral ID Status Reason Start Date Expiration Date Visits Requested Visits Authorized [id number] Pending Review Auto-Generat ed Referral 03/10/2022 03/10/2023 1 1 * Outpatient Procedure (Routine) - Pending Review Specialty Diagnoses / Procedures Referred By Contac t Referred To Contact [facility] Diagnoses Screening for colon cancer Procedures COLONOSCOPY SCREENING COLONOSCOPY FLX DX W/COLLJ SPEC WHEN GENNYRMErica Carranza PA-C [address] [place] [address] [facility] [address] [place] [address] Referral ID Status Reason Start Date Expiration Date Visits Requested Visits Authorized [id number] Pending Review Auto-Generat ed Referral 03/10/2022 03/10/2023 [facility] Consultation (Routine) - Pending Review Specialty Diagnoses / Procedures Referred By Contac t Referred To Contact Urology Diagnoses Elevated PSA, less than 10 ng/ml Procedures PA OFFICE/OUTPATIENT NEW HIGH MDM 60-74 MINUTES Mouna Dawson DO [address] [place] [address] Ananda Ruiz MD [address] [facility] [place] [address] Referral ID Status Reason Start Date Expiration Date Visits Requested Visits Authorized [id number] Pending Review Specialty Services Required 10/20/2022 10/20/2023 1 1 [facility] Purpose Family History No Family History Records FoundNo Family History Records Found Advance Directives No Advanced Directives Records FoundNo Advanced Directives Records Found Reason for Referral Specialty Diagnoses / Procedures Referred By Contac t Referred To Contact Radiology Diagnoses Moderate smoker (20 or less per day) Smoker Procedures CT lung screening low dose Mouna Dawson DO [address] [facility] [address] [place] [address] Referral ID Status Reason Start Date Expiration Date V isits Requested Visits Authorized [id number] Pending Review 03/25/2023 03/24/2024 1 1 Specialty Diagnoses / Procedures Referred By Contac t Referred To Contact Urology Diagnoses Elevated PSA, less than 10 ng/ml Procedures PA OFFICE/OUTPATIENT NEW HIGH MDM 60 MINUTES Mouna Dawson Chavez, DO [address] [place] [address] Cece Martin [address] [address] Referral ID Status Reason Start Date Expiration Date Visits Requested Visits Authorized [id number] Pending Review Specialty Services Required 03/25/2023 03/24/2024 1 1 Referral ID Status Reason Start Date Expiration Date Visits Re quested Visits Authorized [id number] Closed 03/25/2023 03/24/2024 1 1 Additional Source Comments Source Comments (unrecognize d section and content) In the event this informatio n is protected by the Federal Confidentiality of Alcohol and Drug Abuse Patient Records regulations: The Federal rules restrict any use of the information to criminally investigate or prosecute any alcohol or drug abuse patient.[facility] the event this information is protected by the Federal Confidentiality of Alcohol and Drug Abuse Patient Records regulations: The Federal rules restrict any use of the information to criminally investigate or prosecute any alcohol or drug abuse patient.[facility] Reason for Visit (unrecogniz ed section and content) Reason Comments Recheck Yearly no concerns. Reason Comments Follow-up 4 month Reason Comments Cough Had a cold then prog ressed into bronchitis, started wednesday Reason Onset Date Comments Referral 10/20/2022 Dr Ruiz Reason Onset Date Comments Med Refill 02/25/2023 Reason Comments Follow-up 6 month med check Reason Onset Date Comments Referral 03/25/2023 Dr Martin / LDCT Specialty Diagnoses / Procedures Referred By Contomayra t Referred To Contact Radiology Diagnoses Moderate smoker (20 or less per day) Smoker Procedures CT lung screening low dose Mouna Dawson Chavez, DO [address] [place] [address] Referral ID Status Reason Start Date Expiration Date Visits Re quested Visits Authorized [id number] Closed 03/25/2023 03/24/2024 1 1 Care Teams (unrecognized sec tion and content) Product Planner Relationship Specialty Start Date End Date Mouna Dawson Chavez [address] [place] [address] PCP - General Family Medicine 02/04/22 Product Planner Relationship Specialty Start Date End Date Mouna Dawson ChavezDO [address] [place] [phone] PCP - General Family Medicine 08/24/22 Product Planner Relationship Specialty Start Date End Date Mouna Dawson ChavezDO [address] [place], [place] [phone] PCP - General Family Medicine 08/24/22 Product Planner Relationship Specialty Start Date End Date Mouna Dawson ChavezDO [address] [place] [phone] PCP - General Family Medicine 08/24/22 Product Planner Relationship Specialty Start Date End Date Mouna Dawson ChavezDO [address] [place], [place] [phone] PCP - General Family Medicine 08/24/22 Product Planner Relationship Specialty Start Date End Date Mouna Dawson DO [address] [place] [phone] PCP - General Family Medicine 08/24/22 Product Planner Relationship Specialty Start Date End Date Mouna Dawson DO [address] [place] [phone] PCP - General Family Medicine 08/24/22 Product Planner Relationship Specialty Start Date End Date Mouna Dawson DO [address] [place] [phone] PCP - General Family Medicine 08/24/22 Product Planner Relationship Specialty Start Date End Date Mouna Dawson DO [address] [place] [phone] PCP - General Family Medicine 08/24/22 Product Planner Relationship Specialty Start Date End Date Mouna Dawson DO [address] [place] [phone] PCP - General Family Medicine 08/24/22 (unrecognized sect ion and content) No Status Records FoundNo Status Records Found INFORMATION SOURCE (unrecogn ized section and content) DATE CREATED AUTHOR AUTHOR'S ORGANIZ ATION 05/12/2023 [facility] FOR RECORDS PERTAINING TO PATIENTS WHO ARE OR HAVE BEEN ENROLLED IN A CHEMICAL DEPENDENCY/SUBSTANCEABUSE PROGRAM, SOME INFORMATION MAY BE OMITTED. This clinical summary was aggregated from multiple sources. Caution should be exercised in using it in the provision of clinical care. This summary normalizes information from multiple sources, and as a consequence, information in this document may materially change the coding, format and clinical context of patient data. In addition, data may be omitted in some cases. CLINICAL DECISIONS SHOULD BE BASED ON THE PRIMARY CLINICAL RECORDS. [facility] provides no warranty or guarantee of the accuracy or completeness of information in this document.
== END | disposition home or self-care (01) ==
LOC: LABSPEC 16:10
PROVIDERS: Referring Provider Urology; Visit Provider Urology
DX: R97.20 Elevated prostate specific antigen [PSA] (principal)
CPT/HCPCS: 88305; 88341; 88342; G0416